=== PATIENT | female | born 1975 | race Caucasian/White ===

== ENCOUNTER 2016-12-08 23:14 | Emergency (ER) | payer OTHER ==
[~2016-12-08 23:14] MED LIST: ACETAMINOPHEN PO; ALPRAZOLAM PO; AMBIEN PO; AMITRYPTYLINE PO; AMOXICILLIN PO; ATARAX PO; AUGMENTIN PO; BACTRIM DS TABL1 TA1 PO; BACTRIM DS TABL1 TAB PO; BENADRYL PO; BENADRYL25 MG PO; CELEXA; CIPRO PO; CLINDAMYCIN HC300 MG PO; CYMBALTA PO; DOXYCYCLINE HY100 M3 PO; FIRST AID ANTIB30 G1 TP; FLEXERIL PO; HEROIN; HUMIBID L.1 TAB.SR . PO; HYDROCODON-ACE1 EAC7 PO; IBUPROFEN PO; IBUPROFEN800 MG PO; IMITREX PO; KEFLEX PO; KEFLEX500 M2 PO; KETOPROFEN PO; LEVAQUIN PO; LORTAB 5/500 TA1 TA1 PO; LORTAB 7.5-5001 TAB PO; MEDROL PO; MEDROL4 MG/DOSE- PO; MIDRIN CAPSULE1 CAP PO; MOBIC PO; NO MEDICATIONS; NORCO 5/325 TAB1 TAB PO; PHENERGAN25 MG PO; PREDNISONE PO; PRILOSEC PO; PROVERA PO; RANITIDINE HCL150 M1 PO; REMERON PO; SEROQUEL; ULTRAM PO; VICODIN 5/1 TAB 5/50 PO; VICODIN 5/500 T1 TAB; VICODIN 5/500 T1 TAB PO; VISTARIL PO; VOLTAREN75 MG PO; [UNRECOGNIZED DRUG - REMARK]
== END 2016-12-09 02:46 | disposition home or self-care (01) ==
LOC: SED 23:14
DX: T40.1X1A Poisoning by heroin, accidental (unintentional), initial encounter (principal); F11.129 Opioid abuse with intoxication, unspecified; J45.909 Unspecified asthma, uncomplicated; F17.200 Nicotine dependence, unspecified, uncomplicated; Z98.890 Other specified postprocedural states
CPT/HCPCS: 99282; J2310